=== PATIENT | female | born 1990 | race Caucasian/White ===

== ENCOUNTER 2016-10-05 19:58 | Emergency (ER) | payer OTHER ==
[~2016-10-05] VITALS: Ht 182.9 cm; Wt 0.6 kg
[~2016-10-05 19:58] MED LIST: OMEP20TA86 PO; POLY17PO6 PO; PREN1TAB25 PO; PROM25TA14 PO
[2016-10-05 20:09] VITALS: BP 121/81; PULSE 120; RESP 16; O2SAT 100
[2016-10-05 20:51] LABS: BASOPHILS % (AUTO) 0.1 % (0-3); EOSINOPHILS % (AUTO) 0.6 % (0-5); MONOCYTES % (AUTO) 5.4 % (4-12); Mean Corpuscular Hemoglobin 30.4 pg (27.0-35.0); Mean Corpuscular Volume 88.6 fL (81-100); NEUTROPHILS % (AUTO) 74.7 % (40-74); Platelet Count 190 bil/L (150-400)
[2016-10-05 21:30] LABS: APPEARANCE,URINE CLEAR (CLEAR,HAZY); COLOR,URINE STRAW (YELLOW); OCCULT BLOOD,URINE NEGATIVE (NEGATIVE); UROBILINOGEN,URINE NORMAL (NORMAL)
[2016-10-05 21:38] LABS: Magnesium 1.7 mg/dL (1.6-2.6)
--- NOTE | 2016-10-05 21:47 | ED.REPORT ---
HPI-Abd Pain F Under 40 Date of Service Oct 05, 2016 ED Provider: Roderick Rodriguez MD The patient is a 26 year old, 14 wk female who presents to the ED complaining of RLQ abdominal pain since waking this morning. Associated symptom of diarrhea. She denies dysuria, cough, vomiting, hematochezia, fever, or any other symptoms at this time. Nursing Notes Stated Complaint: ABD PAIN/14 WKS PREG Chief Complaint: Female Abdominal Pain Nursing Notes Reviewed: Yes Allergies: Coded Allergies: ondansetron (Verified Allergy, Unknown, Rash, 06/19/16) States she can't have zofran ODT - NO ALLERGIC RESPONSE WITH IV Uncoded Allergies: BUBBLE GUM FLAVOR (Allergy, Severe, Anaphylaxis, 11/07/15) Scheduled Cephalexin (Keflex) 500 Mg Capsule 500 MG PO QID Omeprazole (Omeprazole) 20 Mg Tablet.dr 20 MG PO BID Vit#96/Ferrous Fum/FA ( Tablet) 1 Each Tablet 1 EACH PO DAILY Scheduled PRN Polyethylene Glycol 3350 (Miralax) 17 Gm Powd.pack 17 GM PO DAILY PRN PRN CONSTIPATION Promethazine (Promethazine) 25 Mg Tablet 25-50 MG PO Q6H PRN PRN For Nausea General Time Seen by MD: 21:47 Chief Complaint Abdominal pain, # weeks (14) Hx Obtained From: Patient Arrived By: Walk-in Sudden in Onset?: No Onset Occurred: 13 - 16 hours ago Symptom Duration: Since onset Progression since Onset: Unchanged Location: : RLQ Quality: Painful Severity: Current: Mild Severity: Maximum: Moderate Recent Healthcare: No recent doctor visit, No recent hospitalization Similar Sx Previous: No Past Medical History Past Medical History Pancreatitis UTIs limited OB care with previous pregnancies Reports: Urinary tract infection Past Surgical History Denies Family History PCO (sister) Smoking History Current Every Day Smoker Social History Alcohol Use: Denies alcohol use Drug Use: THC Other Social History: Poor social support, Lives with children, Local resident Ambulatory Status Independent Review of Systems Constitutional: Denies: Chills, Fever GI: Reports: Abdominal pain, Diarrhea, Denies: Bloody/tarry stool, Constipation, Hematochezia, Vomiting Complete sys rev & neg: except as marked. Physical Exam Initial Vital Signs Vital Signs (First) Date Time Temp Pulse Resp B/P Pulse Ox O2 Delivery O2 Flow Rate FiO2 10/05/16 20:09 36.3 120 16 121/81 100 Room Air Initial VS: Reviewed Head / Eyes: Atraumatic, Normocephalic, PERRL ENT: Mucous membranes moist, Conjunctiva normal, No scleral icterus Neck: Supple, Non-tender, Full range of motion Extremities: Vascular intact, Neuro intact, No swelling, No tenderness Skin: Warm, Dry, No cyanosis Neurologic: Alert, Oriented, Nonfocal Psychiatric: Mood/affect normal, Behavior normal, Normal thought content General/Constitutional: Awake, Alert, No acute distress, Well appearing Respiratory / Chest: Atraumatic, Breath sounds NL, Breath sounds = bilat, No respiratory distress Cardiovascular: Heart rate NL, Regular rhythm, Heart sounds NL Abdomen: Atraumatic, Soft Tenderness/Guarding/Rebound: Positive: Tender RLQ... (Mild) Back: Atraumatic, Inspection NL, Full range of motion, Non-tender Interpretation & Diagnostics Lab Results Interpretation Result Diagram: 10/05/16203610/05/162036 Test 10/05/16 20:37 10/05/16 21:01 White Blood Count 8.2th/mm3 (3.8-10.1) Red Blood Count 3.78mil/mm3 (3.90-5.20) Hemoglobin 11.5g/dL (12.0-15.6) Hematocrit 33.5% (35.0-46.0) Mean Corpuscular Volume 88.6fL (81-100) Mean Corpuscular Hemoglobin 30.4pg (27.0-35.0) Mean Corpuscular Hemoglobin Concent 34.3% (32.0-37.0) Red Cell Distribution Width 13.3% (12.3-15.4) Platelet Count 190bil/L (150-400) Neutrophils (%) (Auto) 74.7% (40-74) Lymphocytes (%) (Auto) 19.1% (14-46) Monocytes (%) (Auto) 5.4% (4-12) Eosinophils (%) (Auto) 0.6% (0-5) Basophils (%) (Auto) 0.1% (0-3) Sodium Level 137mEq/L (134-144) Potassium Level 3.6mEq/L (3.5-5.2) Chloride Level 102mEq/L (97-108) Carbon Dioxide Level 22mmol/L (18-29) Blood Urea Nitrogen 5mg/dL (6-20) Creatinine 0.39mg/dL (0.57-1.00) Estimat Glomerular Filtration Rate 289mL/min (>59) Glucose Level 92mg/dL (60-99) Calcium Level 9.0mg/dL (8.5-10.1) Magnesium Level 1.7mg/dL (1.6-2.6) Total Bilirubin 0.2mg/dL (0.0-1.2) Aspartate Amino Transf (AST/SGOT) 16U/L (0-50) Alanine Aminotransferase (ALT/SGPT) 9U/L (0-32) Alkaline Phosphatase 52U/L (25-150) Total Protein 6.9g/dL (6.4-8.4) Albumin 3.9g/dL (3.4-5.0) Lipase 18U/L (13-60) HCG Beta Subunit [id number]/mL Hold Javier Top Tube Received (Received) Urine Color Straw (YELLOW) Urine Appearance Clear (CLEAR,HAZY) Urine pH 7.0 (5.0-8.0) Urine Specific [place] 1.010 (1.003-1.035) Urine Protein Negativemg/dL (NEG,TRACE) Urine Glucose (UA) Negativemg/dL (NEGATIVE) Urine Ketones Negativemg/dL (NEGATIVE) Urine Occult Blood Negative (NEGATIVE) Urine Nitrite Negative (NEGATIVE) Urine Bilirubin Negative (NEGATIVE) Urine Urobilinogen Normalmg/dL (NORMAL) Urine Leukocyte Esterase Large (NEGATIVE) Urine RBC 0-2/hpf (0-2) Urine WBC 11-50/hpf (0-5) Urine Epithelial Cells Many/hpf (NONE-MOD) Urine Crystals None seen (NONE SEEN) Urine Bacteria Moderate/hpf (NONE-FEW) Urine Hyaline Casts None/lpf (NONE) Urine Granular Casts None seen (NONE SEEN) Urine Waxy Casts None seen (NONE SEEN) Urine Red Blood Cell Casts None seen (NONE SEEN) Urine White Blood Cell Casts None seen (NONE SEEN) Urine Mucus None seen (None Seen) Urine Trichomonas None seen (NONE SEEN) Urine Yeast None (NONE SEEN) Urinalysis Comment None Urine Culture Reflexed Indicated Re-Eval/Medical Decision Med Decision/Clinical Course Med Decision/Clinical Course: 25-year-old female fourteen weeks with abdominal pain most primarily in the right mid abdomen. Was not actually particularly tender in the right lower quadrant. She has a definite UTI by urine. We will treat that empirically and follow clinically. Plan return tomorrow if pain is progressive or not resolving. Begun with Rocephin IV tonight and Keflex to follow. Tylenol or Motrin as needed for pain. Source of Hx: Old records Re-Evaluation/Progress : Time of Eval: 22:52 Re-Evaluation/Progress Note: Rechecked the patient who reports some relief but continued pain. Discussed plan for treatment. Discussed diagnosis and plan for discharge. Follow-up instructions and RTER warnings given. The patient understands and agrees to the plan. All questions addressed. Counseled Regarding: Diagnosis, Lab results, Need for follow-up, When/why to return to ED Discharge & Departure Primary Impression: UTI (urinary tract infection) Urinary tract infection type: acute cystitis Hematuria presence: without hematuria Qualified Code: N30.00 - Acute cystitis without hematuria Additional Impressions: Abdominal pain Abdominal location: right lower quadrant Qualified Code: R10.31 - Right lower quadrant pain Weeks of gestation: 14 weeks Qualified Code: Z3A.14 - 14 weeks gestation of Disposition: Home Discharge Condition All VS Reviewed: Yes Condition: Stable Patient Instructions: Acute Abdominal Pain (ED), Appendicitis (ED), Urinary Tract Infection in Women (ED) Additional Instructions: We have no evidence of appendicitis at this time. However, if your pain is worsening overnight, return in the morning for recheck, and we may have to go through further evaluation to exclude that possibility. At this point, her white count is normal, your exam is tender but not surgical, and you have a definite urinary tract infection. Begin Keflex four times daily. Ibuprofen four times daily if needed. This is safe in until twenty- four weeks. Stay well-hydrated drink plenty of fluids Do not eat in the morning if you are going to return here. Referrals: MIKI DORANTES MD (PCP) Elías Attestation Portions of this note were transcribed by Anibal Saini. I, Dr. Rodriguez, personally performed the history, physical exam, and medical decision-making; I reviewed and confirmed the accuracy of the information in the transcribed note. Signed by: Elías Mendez 10/05/16 23:23. copies to: MIKI DORANTES MD, Christopher W MD Oct 05, 2016 21:47 ANIBAL SAINI Oct 05, 2016 21:59
[2016-10-05] MEDS ORDERED: 0.9% Sodium Chloride 1,000 ML IV ONE (21:58)
[2016-10-05] MEDS ORDERED: cefTRIAXone Inj 2,000 MG in IV Premix 1 EACH IV ONE (22:00)
[2016-10-05] MEDS ORDERED: Acetaminophen IV 1,000 MG in IV Premix 1 EACH IV ONE (22:00)
[2016-10-05 22:17] VITALS: BP 116/68; PULSE 114; RESP 16; O2SAT 100
[2016-10-05] MEDS ORDERED: CEPH-512 PO (23:19)
[2016-10-05 23:27] VITALS: BP 112/63; PULSE 73; RESP 16; O2SAT 99
[2016-10-06] MEDS ORDERED: METO10TA3 PO (09:23)
== END 2016-10-05 23:28 | disposition home or self-care (01) ==
LOC: SED 19:58
DX: O23.12 Infections of bladder in pregnancy, second trimester (principal); O26.892 Other specified pregnancy related conditions, second trimester; R19.7 Diarrhea, unspecified; F17.200 Nicotine dependence, unspecified, uncomplicated; Z3A.14 14 weeks gestation of pregnancy; Z88.8 Allergy status to other drugs, medicaments and biological substances
CPT/HCPCS: 36415; 80053; 81000; 83690; 83735; 84702; 85025; 87086; 96365; 96375; 99285; J0131; J0696; J7030

== ENCOUNTER 2016-10-06 05:25 | Emergency (ER) | payer OTHER ==
[~2016-10-06] VITALS: Ht 182.9 cm; Wt 55.5 kg
[~2016-10-06 05:25] MED LIST changes: +CEPH-512 PO
[2016-10-06] MEDS ORDERED: 0.9% Sodium Chloride 1,000 ML IV ONE (05:27)
[2016-10-06 05:29] VITALS: BP 118/76; PULSE 94; RESP 18; O2SAT 100
[2016-10-06] MEDS ORDERED: HYDROmorphone 0.5 mg/0.5 mL iSecure Syringe IVPUSH PRN (05:30)
[2016-10-06 05:58] LABS: BASOPHILS % (AUTO) 0.3 % (0-3); MONOCYTES % (AUTO) 6.8 % (4-12); Mean Corpuscular Hemoglobin 30.8 pg (27.0-35.0); Mean Corpuscular Volume 88.7 fL (81-100); NEUTROPHILS % (AUTO) 63.9 % (40-74); Platelet Count 175 bil/L (150-400)
[2016-10-06] MEDS ORDERED: Ondansetron 2 mg/mL 2 mL Inj IVPUSH PRN (06:30)
[2016-10-06] MEDS ORDERED: MetoCLOpramide 5 mg/mL 2 mL Inj IVPUSH ONE (06:30)
[2016-10-06] MEDS ORDERED: Acetaminophen IV 1,000 MG in IV Premix 1 EACH IV ONE (06:30)
[2016-10-06 06:55] LABS: Magnesium 1.9 mg/dL (1.6-2.6)
--- NOTE | 2016-10-06 09:21 | ED.REPORT ---
HPI-Abd Pain F Under 40 Date of Service Oct 06, 2016 ED Provider: Jarocho Vasquez MD This young woman presents with abdominal pain. She is 14 weeks and presented with the identical complaint last night. She was initially seen by Dr. Rodriguez at the time of arrival and I assumed care upon his departure. When I interviewed the patient she says that her symptoms are completely resolved with the medications administered. I examined her carefully as well. She denies any other health problems and denies any previous surgeries Nursing Notes Stated Complaint: ABDOMINAL PAIN Chief Complaint: Female Abdominal Pain Nursing Notes Reviewed: Yes Allergies: Coded Allergies: ondansetron (Verified Allergy, Unknown, Rash, 06/19/16) States she can't have zofran ODT - NO ALLERGIC RESPONSE WITH IV Uncoded Allergies: BUBBLE GUM FLAVOR (Allergy, Severe, Anaphylaxis, 11/07/15) Scheduled Cephalexin (Keflex) 500 Mg Capsule 500 MG PO QID Omeprazole (Omeprazole) 20 Mg Tablet.dr 20 MG PO BID Vit#96/Ferrous Fum/FA ( Tablet) 1 Each Tablet 1 EACH PO DAILY Scheduled PRN Metoclopramide (Metoclopramide) 10 Mg Tablet 10 MG PO QID PRN PRN For Nausea Polyethylene Glycol 3350 (Miralax) 17 Gm Powd.pack 17 GM PO DAILY PRN PRN CONSTIPATION Promethazine (Promethazine) 25 Mg Tablet 25-50 MG PO Q6H PRN PRN For Nausea General Time Seen by MD: 05:38 Chief Complaint Abdominal pain Hx Obtained From: Patient Arrived By: Walk-in Sudden in Onset?: Yes Onset Occurred: 3 days ago Symptom Duration: Since onset Location: : Diffuse Severity: Current: Mild Severity: Maximum: Moderate Similar Sx Previous: Yes Past Medical History Past Medical History Pancreatitis UTIs limited OB care with previous pregnancies Reports: Urinary tract infection Past Surgical History Denies Family History PCO (sister) Smoking History Current Every Day Smoker Social History Alcohol Use: Denies alcohol use Drug Use: THC Other Social History: Poor social support, Lives with children, Local resident Ambulatory Status Independent Review of Systems Constitutional: Denies: Chills, Fever, Malaise, Weakness - generalized Respiratory: Denies: Non-productive cough, Shortness of breath, Wheezing Cardiovascular: Denies: Chest pain, Syncope GI: Reports: Abdominal pain, Denies: Constipation, Diarrhea, Nausea, Vomiting Female: Denies: Dysuria, Flank pain, Urinary frequency, Urinary urgency Musculoskeletal: Denies: Back pain, Extremity pain, Neck pain Complete sys rev & neg: except as marked. Physical Exam Initial Vital Signs Vital Signs (First) Date Time Temp Pulse Resp B/P Pulse Ox O2 Delivery O2 Flow Rate FiO2 10/06/16 05:29 36.9 94 18 118/76 100 Room Air Initial VS: Reviewed Head / Eyes: Atraumatic, Normocephalic, PERRL ENT: Mucous membranes moist, Conjunctiva normal, No scleral icterus Neck: Supple, Non-tender, Full range of motion Skin: Warm, Dry, No cyanosis Neurologic: Alert, Oriented, Nonfocal Psychiatric: Mood/affect normal, Behavior normal, Normal thought content General/Constitutional: Awake, Alert, No acute distress, Well appearing, Well developed, Well nourished, Cooperative Respiratory / Chest: Atraumatic, Breath sounds NL, Breath sounds = bilat, No respiratory distress Cardiovascular: Heart rate NL, Regular rhythm, Heart sounds NL, No gallop, No murmurs, No rubs Abdomen: Atraumatic, Soft, Non-tender, No guarding, No rebound , soft uterus Physical exam was conducted after pain medications were given Back: Atraumatic, Inspection NL, No midline vertebral tend, No CVA tenderness Interpretation & Diagnostics Lab Results Interpretation Result Diagram: 10/06/16 0545 10/06/16 0545 Test 10/06/16 05:45 White Blood Count 5.7th/mm3 (3.8-10.1) Red Blood Count 4.16mil/mm3 (3.90-5.20) Hemoglobin 12.8g/dL (12.0-15.6) Hematocrit 36.9% (35.0-46.0) Mean Corpuscular Volume 88.7fL (81-100) Mean Corpuscular Hemoglobin 30.8pg (27.0-35.0) Mean Corpuscular Hemoglobin Concent 34.7% (32.0-37.0) Red Cell Distribution Width 13.5% (12.3-15.4) Platelet Count 175bil/L (150-400) Neutrophils (%) (Auto) 63.9% (40-74) Lymphocytes (%) (Auto) 28.0% (14-46) Monocytes (%) (Auto) 6.8% (4-12) Eosinophils (%) (Auto) 1.0% (0-5) Basophils (%) (Auto) 0.3% (0-3) Sodium Level 135mEq/L (134-144) Potassium Level 3.6mEq/L (3.5-5.2) Chloride Level 100mEq/L (97-108) Carbon Dioxide Level 23mmol/L (18-29) Blood Urea Nitrogen 4mg/dL (6-20) Creatinine 0.40mg/dL (0.57-1.00) Estimat Glomerular Filtration Rate 281mL/min (>59) Glucose Level 96mg/dL (60-99) Calcium Level 8.9mg/dL (8.5-10.1) Magnesium Level 1.9mg/dL (1.6-2.6) Total Bilirubin 0.3mg/dL (0.0-1.2) Aspartate Amino Transf (AST/SGOT) 15U/L (0-50) Alanine Aminotransferase (ALT/SGPT) 8U/L (0-32) Alkaline Phosphatase 52U/L (25-150) Total Protein 7.1g/dL (6.4-8.4) Albumin 4.0g/dL (3.4-5.0) Lipase 15U/L (13-60) Hold Javier Top Tube Received (Received) Lab Results Interpretation: central supply technician reports normal appendix is identified. Re-Eval/Medical Decision Source of Hx: Old records Re-Evaluation/Progress : Time of Eval: 09:24 Re-Evaluation/Progress Note: Pt is rechecked and informed of her US results and the plan to discharge her at this time. She understands and agrees, all questions are addressed. Counseled Regarding: Diagnosis, Lab results, When/why to return to ED Discharge & Departure Primary Impression: Abdominal pain Abdominal location: right lower quadrant Qualified Code: R10.31 - Right lower quadrant pain Additional Impression: Weeks of gestation: 14 weeks Qualified Code: Z3A.14 - 14 weeks gestation of Disposition: Home Discharge Condition All VS Reviewed: Yes Condition: Stable Patient Instructions: Acute Abdominal Pain (ED) Additional Instructions: Your appendix appears normal on the ultrasound. Your blood work is entirely normal. Continue the antibiotic as prescribed. Follow-up with your OB doctor on Saturday. Return to the emergency department if you develop a high fever or feeling much worse. Use Tylenol 1000 mg every 6 hours and/or ibuprofen 800 mg every 8 hours Referrals: MIKI DORANTES MD (PCP) Scribe Attestation Portions of this note were transcribed by Emily Gutierrez. I, Dr. Vasquez personally performed the history, physical exam and medical decision-making; I reviewed and confirmed the accuracy of the information in the transcribed note. Signed by: Emily Mckinely, 10/06/2016 09:23 copies to: MIKI DORANTES MD, Kirk H MD Oct 06, 2016 09:21 HEIKE GUTIERREZ Oct 06, 2016 09:25
[2016-10-06] MEDS ORDERED: METO10TA3 PO (09:23)
[2016-10-06 09:49] VITALS: BP 100/61; PULSE 80; RESP 16; O2SAT 99
--- NOTE | 2016-10-06 10:29 | DRSVH ---
PROCEDURE: US APPENDIX INDICATIONS: rlq pain, r/o appy TECHNIQUE: Real-time focused scanning was performed of the abdomen with attention to the appendix, with image do cumentation. COMPARISON: [facility], , OB [facility]OB TRAN[facility], 02/17/2016, 22:35. FINDINGS: There is a tubular compressible structure in the right lower quadrant demonstrating bowel signature w hich appears blind-ending and likely represents the appendix. This is normal in size measuring up to approximately 5 mm in diameter. No free fluid identified in the right lower quadrant. Patient was reportedly nontender on exam. Right ovary not visualized. There is an intrauterine demonstrated with heart rate of 147 beats per minute. IMPRESSION: 1. Tubular structure likely representing a normal appendix demonstrated in the right lower quadrant. No free fluid or tenderness reported during examination. 2. Single living intrauterine demonstrated. Dictated by: Bishop Ca M.D. on 10/06/2016 at 10:25 Approved by: Bishop Ca M.D. on 10/06/2016 at 10:25
== END 2016-10-06 09:51 | disposition home or self-care (01) ==
LOC: SED 05:25
DX: O99.89 Other specified diseases and conditions complicating pregnancy, childbirth and the puerperium (principal); R10.31 Right lower quadrant pain; Z3A.14 14 weeks gestation of pregnancy; O99.332 Smoking (tobacco) complicating pregnancy, second trimester; Z88.8 Allergy status to other drugs, medicaments and biological substances
CPT/HCPCS: 36415; 76705; 80053; 83690; 83735; 85025; 96361; 96374; 96375; 99285; J0131; J1170; J2405; J2765; J7030

== ENCOUNTER 2016-10-06 19:04 | Emergency (ER) | payer OTHER ==
[~2016-10-06] VITALS: Ht 182.9 cm; Wt 55.5 kg
[~2016-10-06 19:04] MED LIST changes: +METO10TA3 PO
[2016-10-06 19:12] VITALS: BP 124/63; PULSE 94; RESP 18; O2SAT 99
[2016-10-06 19:59] LABS: BASOPHILS % (AUTO) 0.1 % (0-3); EOSINOPHILS % (AUTO) 0.7 % (0-5); MONOCYTES % (AUTO) 5.6 % (4-12); Mean Corpuscular Hemoglobin 29.9 pg (27.0-35.0); Mean Corpuscular Volume 89.6 fL (81-100); NEUTROPHILS % (AUTO) 76.8 % (40-74); Platelet Count 182 bil/L (150-400)
[2016-10-06 20:18] LABS: Magnesium 1.9 mg/dL (1.6-2.6)
[2016-10-06 20:29] LABS: APPEARANCE,URINE HAZY (CLEAR,HAZY); COLOR,URINE YELLOW (YELLOW); OCCULT BLOOD,URINE NEGATIVE (NEGATIVE); UROBILINOGEN,URINE NORMAL (NORMAL)
--- NOTE | 2016-10-06 20:36 | ED.REPORT ---
HPI-Abd Pain F Under 40 Date of Service Oct 06, 2016 ED Provider: Dr. Hank Parrish D.O. A 26 year old female at 14 weeks with a history of pancreatitis and heart murmur presents to the ED with right-sided abdominal pain onset last night. The patient also reports vomiting with hematemesis (x3). She denies vaginal bleeding. This is the patient's third visit to the ED since onset of her symptoms. The patient is currently being treated for a UTI. Nursing Notes Stated Complaint: STOMACH PAIN,ThROWING UP BLOOD Chief Complaint: Female Abdominal Pain Nursing Notes Reviewed: Yes Allergies: Coded Allergies: ondansetron (Verified Allergy, Unknown, Rash, 10/06/16) States she can't have zofran ODT - NO ALLERGIC RESPONSE WITH IV Uncoded Allergies: BUBBLE GUM FLAVOR (Allergy, Severe, Anaphylaxis, 11/07/15) Scheduled Cephalexin (Keflex) 500 Mg Capsule 500 MG PO QID Omeprazole (Omeprazole) 20 Mg Tablet.dr 20 MG PO BID Vit#96/Ferrous Fum/FA ( Tablet) 1 Each Tablet 1 EACH PO DAILY Scheduled PRN Metoclopramide (Metoclopramide) 10 Mg Tablet 10 MG PO QID PRN PRN For Nausea Polyethylene Glycol 3350 (Miralax) 17 Gm Powd.pack 17 GM PO DAILY PRN PRN CONSTIPATION Promethazine (Promethazine) 25 Mg Tablet 25-50 MG PO Q6H PRN PRN For Nausea General Time Seen by MD: 20:36 Chief Complaint Abdominal pain Hx Obtained From: Patient Arrived By: Walk-in Sudden in Onset?: Yes Onset Occurred: Yesterday Symptom Duration: Since onset Location: : RLQ: RUQ Quality: Painful Severity: Current: Moderate Severity: Maximum: Moderate Associated with: Reports: Hematemesis, Vomiting, Denies: Fever Status: Positive - ED urine HCG Pertinent Negative: Relieved by nothing Context Related History: Reports: Current , Pancreatitis, Urinary tract infection Recent Healthcare: Recent doctor visit Similar Sx Previous: Yes Past Medical History Past Medical History Pancreatitis UTIs limited OB care with previous pregnancies Heart murmur Reports: Urinary tract infection Past Surgical History Denies Family History PCO (sister) Smoking History Current Every Day Smoker Social History Alcohol Use: Denies alcohol use Drug Use: THC Other Social History: Poor social support, Lives with children, Local resident Ambulatory Status Independent Review of Systems Constitutional: Denies: Fever GI: Reports: Abdominal pain (Right-sided), Hematemesis, Vomiting Female: Denies: Vaginal bleeding - abnl Complete sys rev & neg: except as marked. Physical Exam Initial Vital Signs Vital Signs (First) Date Time Temp Pulse Resp B/P Pulse Ox O2 Delivery O2 Flow Rate FiO2 10/06/16 19:12 36.3 94 18 124/63 99 Room Air Initial VS: Reviewed Head / Eyes: Atraumatic, Normocephalic ENT: Conjunctiva normal, No scleral icterus Neck: Supple, Full range of motion Skin: Warm, Dry, No cyanosis Neurologic: Alert, Oriented, Nonfocal Psychiatric: Mood/affect normal, Behavior normal, Normal thought content General/Constitutional: Awake, Alert Respiratory / Chest: Breath sounds NL, Breath sounds = bilat, No respiratory distress Cardiovascular: Heart rate NL, Regular rhythm, Heart sounds NL Abdomen: Soft Tenderness/Guarding/Rebound: Positive: Tender RUQ... (Mild) Interpretation & Diagnostics Bedside US performed by ED physician indicates normal gallbladder, normal intrauterine with heart tones of 158 and good movement, normal amount of amniotic fluid, no sonographic Theodore's sign Lab Results Interpretation Result Diagram: 10/06/16 2251 10/06/16 1946 Test 10/06/16 19:20 10/06/16 19:46 10/06/16 22:51 Urine Color Yellow (YELLOW) Urine Appearance Hazy (CLEAR,HAZY) Urine pH 7.0 (5.0-8.0) Urine Specific [place] 1.020 (1.003-1.035) Urine Protein Negativemg/dL (NEG,TRACE) Urine Glucose (UA) Negativemg/dL (NEGATIVE) Urine Ketones Negativemg/dL (NEGATIVE) Urine Occult Blood Negative (NEGATIVE) Urine Nitrite Negative (NEGATIVE) Urine Bilirubin Negative (NEGATIVE) Urine Urobilinogen Normalmg/dL (NORMAL) Urine Leukocyte Esterase Small (NEGATIVE) Urine RBC 0-2/hpf (0-2) Urine WBC 6-10/hpf (0-5) Urine Epithelial Cells Moderate/hpf (NONE-MOD) Urine Crystals None seen (NONE SEEN) Urine Bacteria Few/hpf (NONE-FEW) Urine Hyaline Casts None/lpf (NONE) Urine Granular Casts None seen (NONE SEEN) Urine Waxy Casts None seen (NONE SEEN) Urine Red Blood Cell Casts None seen (NONE SEEN) Urine White Blood Cell Casts None seen (NONE SEEN) Urine Mucus Present (None Seen) Urine Trichomonas None seen (NONE SEEN) Urine Yeast Moderate (NONE SEEN) Urinalysis Comment None Urine Culture Reflexed Indicated White Blood Count 7.1th/mm3 (3.8-10.1) Red Blood Count 3.64mil/mm3 (3.90-5.20) Mean Corpuscular Volume 89.6fL (81-100) Mean Corpuscular Hemoglobin 29.9pg (27.0-35.0) Mean Corpuscular Hemoglobin Concent 33.4% (32.0-37.0) Red Cell Distribution Width 13.6% (12.3-15.4) Platelet Count 182bil/L (150-400) Neutrophils (%) (Auto) 76.8% (40-74) Lymphocytes (%) (Auto) 16.7% (14-46) Monocytes (%) (Auto) 5.6% (4-12) Eosinophils (%) (Auto) 0.7% (0-5) Basophils (%) (Auto) 0.1% (0-3) Sodium Level 135mEq/L (134-144) Potassium Level 4.0mEq/L (3.5-5.2) Chloride Level 101mEq/L (97-108) Carbon Dioxide Level 22mmol/L (18-29) Blood Urea Nitrogen 8mg/dL (6-20) Creatinine 0.42mg/dL (0.57-1.00) Estimat Glomerular Filtration Rate 266mL/min (>59) Glucose Level 95mg/dL (60-99) Calcium Level 8.8mg/dL (8.5-10.1) Magnesium Level 1.9mg/dL (1.6-2.6) Total Bilirubin 0.2mg/dL (0.0-1.2) Aspartate Amino Transf (AST/SGOT) 13U/L (0-50) Alanine Aminotransferase (ALT/SGPT) 7U/L (0-32) Alkaline Phosphatase 48U/L (25-150) Total Protein 6.5g/dL (6.4-8.4) Albumin 3.7g/dL (3.4-5.0) Lipase 18U/L (13-60) Hold Javier Top Tube Received (Received) Hemoglobin 10.7g/dL (12.0-15.6) Hematocrit 31.3% (35.0-46.0) Re-Eval/Medical Decision Med Decision/Clinical Course On my evaluation this young lady was completely asymptomatic. The pain had resolved. She had a little residual nausea but no further vomiting. We perform serial H&H's and they were stable. She does have very mild anemia. She is not having any evidence of acute active gastrointestinal hemorrhage. I consulted with the on-call OB for her group. They would like us to place her on Reglan and they will check with her tomorrow. At discharge she was completely asymptomatic. She had no pain. She had no tenderness and no further vomiting. Source of Hx: Old records Re-Evaluation/Progress #1: Time of Eval: 21:50 Patient Status: Condition improved Re-Evaluation/Progress Note: Bedside US performed. Re-Evaluation/Progress #2: Time of Eval: 22:19 Patient Status: Condition improved Re-Evaluation/Progress Note: Discussed with patient lab results, diagnosis, and plan for discharge. Follow-up and return to the ER instructions given. Patient agrees with plan for care and all questions were addressed. Consultation : Referral / Consult Name: Melva Ceballos MD Call Returned at: 22:12 Typing Section Chief: Agrees with eval, Agrees with plan Note: SYSTEM ADMIN avionics systems technician for Dr. Rick: Agrees with plan for Reglan Counseled Regarding: Diagnosis, Lab results, Need for follow-up, When/why to return to ED Discharge & Departure Shift Change Sign-Out Response to Therapy: Improved Primary Impression: Abdominal pain Abdominal location: right upper quadrant Qualified Code: R10.11 - Right upper quadrant pain Additional Impression: Nausea/vomiting in Disposition: Home Discharge Condition All VS Reviewed: Yes Condition: Stable Patient Instructions: Acute Abdominal Pain (ED), Gastrointestinal Bleeding (ED) , Hyperemesis Gravidarum (GEN) Additional Instructions: The gallbladder ultrasound and her ultrasound were both reassuring. You are mildly anemic. Take Reglan one every 6 hours as needed for nausea. Drink plenty of liquids. Keep your follow-up on Saturday with Dr. Rick. I consulted with Dr. Ceballos who is on-call for Dr. Rick. She agrees with the plan for the Reglan. If you vomit up any more blood then you need to come right back to the emergency department. The cause of your pain is uncertain. This too needs close follow-up. Discuss all of this with Dr. Rick. Referrals: MIKI DORANTES MD (PCP) Anibal Rick MD [employer] Attestation Portions of this note were transcribed by Nancy Nina. I, Dr. Parrish, personally performed the history, physical exam, and medical decision-making; I reviewed and confirmed the accuracy of the information in the transcribed note. Signed by: Elías Corado, 10/06/2016, 23:33 copies to: MIKI DORANTES MD; Anibal Rick MD, Todd P DO Oct 06, 2016 20:36 NANCY NINA Oct 06, 2016 21:18
[2016-10-06 20:37] LABS: YEAST,URINE MODERATE (NONE SEEN)
[2016-10-06 23:23] VITALS: BP 104/52; PULSE 72; RESP 18; O2SAT 99
== END 2016-10-06 23:24 | disposition home or self-care (01) ==
LOC: SED 19:05
DX: O26.892 Other specified pregnancy related conditions, second trimester (principal); R10.11 Right upper quadrant pain; O21.0 Mild hyperemesis gravidarum; O99.612 Diseases of the digestive system complicating pregnancy, second trimester; K92.0 Hematemesis; F17.200 Nicotine dependence, unspecified, uncomplicated; Z88.8 Allergy status to other drugs, medicaments and biological substances; Z3A.14 14 weeks gestation of pregnancy

== ENCOUNTER 2017-04-03 09:05 | Emergency (ER) | payer OTHER ==
[~2017-04-03] VITALS: Ht 182.9 cm; Wt 56.0 kg
[2017-04-03 09:09] VITALS: BP 106/71; PULSE 116; RESP 18; O2SAT 99
[2017-04-03] MEDS ORDERED: 0.9% Sodium Chloride 1,000 ML IV ONE (09:45)
--- NOTE | 2017-04-03 09:49 | ED.REPORT ---
HPI-Abd Pain F Under 40 Date of Service Apr 03, 2017 ED Provider: Tai Cuellar MD The patient is a 27 year old female with history of prior tubal ligation on February 26, who presents to the emergency department complaining of a fever. She was evaluated at urgent care on Saturday for 1 week of abdominal pain, had and ultrasound and was told there was fluid around her uterus. The pain was diffusely throughout her abdomen. She was seen at [facility] last night for the same, had a CT scan with no acute findings, and the cause of her pain was undetermined. She got home last night, was still having pain, took Tylenol and Ibuprofen, and went to bed. This morning she woke up with a fever, nausea, and vomiting. She has not had a fever prior to today. The abdominal pain is currently resolved. She denies cough, dysuria, lower extremity swelling. Nursing Notes Stated Complaint: FEVER Chief Complaint: General Complaint Nursing Notes Reviewed: Yes ([employer], meds not reconciled) Allergies: Coded Allergies: ondansetron (Verified Allergy, Unknown, Rash, 10/06/16) States she can't have zofran ODT - NO ALLERGIC RESPONSE WITH IV Uncoded Allergies: BUBBLE GUM FLAVOR (Allergy, Severe, Anaphylaxis, 11/07/15) No Active Prescriptions or Reported Meds General Time Seen by MD: 09:32 Chief Complaint Other (fever) Hx Obtained From: Patient Arrived By: Walk-in Sudden in Onset?: Yes Onset Occurred: 5 - 8 hours ago Symptom Duration: Since onset Progression since Onset: Constant Location: : Diffuse Quality: Painful Severity: Current: No pain currently Severity: Maximum: Severe Recent Healthcare: No recent hospitalization, Recent doctor visit, Previous surgery (tubal ligation), Prior workup Similar Sx Previous: No Past Medical History Past Medical History Notes: Patient is 5 weeks post Seen at [facility] department for abdominal pain yesterday, April 02 Seen Urgent care March 29 for abdominal pain w/pelvic US raising question of pelvic congestion syndrome Past Medical History h/o Pancreatitis UTIs limited OB care with previous pregnancies Heart murmur History of bipolar History of chlamydia, HPV History of abnormal Pap smear History of anemia Reports: Urinary tract infection Past Surgical History Tubal ligation February 2017 Family History PCO (sister) Smoking History Current Every Day Smoker Social History Alcohol Use: Denies alcohol use Drug Use: THC Other Social History: Poor social support, Lives with children, Local resident Ambulatory Status Independent Review of Systems Constitutional: Reports: Fever Respiratory: Denies: Non-productive cough GI: Reports: Abdominal pain, Nausea, Vomiting Female: Denies: Dysuria Musculoskeletal: Denies: Extremity swelling Complete sys rev & neg: except as marked. Physical Exam Initial Vital Signs Vital Signs (First) Date Time Temp Pulse Resp B/P Pulse Ox O2 Delivery O2 Flow Rate FiO2 04/03/17 09:09 37.6 116 18 106/71 99 Room Air Initial VS: Reviewed Head / Eyes: Atraumatic, Normocephalic, PERRL ENT: Mucous membranes moist, Conjunctiva normal, No scleral icterus Neck: Supple, Non-tender, Full range of motion Lymphatic: No lymphadenopathy Extremities: Vascular intact, Neuro intact, No swelling, No tenderness Skin: Warm, Dry, No cyanosis Neurologic: Alert, Oriented, Nonfocal Psychiatric: Mood/affect normal, Behavior normal, Normal thought content General/Constitutional: Awake, Alert, No acute distress, Well appearing Respiratory / Chest: Atraumatic, Breath sounds NL, Breath sounds = bilat, No respiratory distress, No rales, No rhonchi, No wheezing Cardiovascular: Regular rhythm, Heart sounds NL, No gallop, No murmurs, No rubs , Cap refill not delayed, Peripheral circulation NL Heart Rate / Rhythm: Positive: Tachycardia Abdomen: Atraumatic, Soft, Non-tender, McBurney's non-tender, No guarding, No rebound, BS normoactive, No distention, No hernia, No palpable mass Back: Inspection NL, Non-tender, No CVA tenderness Interpretation & Diagnostics Interpretation & Diagnostics: CT abdomen and pelvis at [facility] and normal appearance, CBC, CMP were normal and [facility]GH yesterday PELVIC US IMPRESSION: 1. Normal appearing uterus and ovaries. 2. No renal obstruction. 3. Moderate amount of free fluid may represent recently ruptured cyst but is indeterminate, internal echoes suggesting blood products. Dictated by: Bogdan Fajardo M.D. on 04/03/2017 at 12:55 Lab Results Interpretation Result Diagram: 04/03/17 1000 04/03/17 1000 Test 04/03/17 09:33 04/03/17 10:00 04/03/17 12:51 Urine Color Yellow (YELLOW) Urine Appearance Slightly cloudy Urine pH 5.5 (5.0-8.0) Urine Specific [place] 1.020 (1.003-1.035) Urine Protein Tracemg/dL (NEG,TRACE) Urine Glucose (UA) Negativemg/dL (NEGATIVE) Urine Ketones 15mg/dL (NEGATIVE) Urine Occult Blood Negative (NEGATIVE) Urine Nitrite Negative (NEGATIVE) Urine Bilirubin Negative (NEGATIVE) Urine Urobilinogen Normalmg/dL (NORMAL) Urine Leukocyte Esterase Negative (NEGATIVE) Urine RBC 0-2/hpf (0-2) Urine WBC 0-5/hpf (0-5) Urine Epithelial Cells Many/hpf (NONE-MOD) Urine Crystals None seen (NONE SEEN) Urine Bacteria Moderate/hpf (NONE-FEW) Urine Hyaline Casts None/lpf (NONE) Urine Granular Casts None seen (NONE SEEN) Urine Waxy Casts None seen (NONE SEEN) Urine Red Blood Cell Casts None seen (NONE SEEN) Urine White Blood Cell Casts None seen (NONE SEEN) Urine Mucus Present (None Seen) Urine Trichomonas None seen (NONE SEEN) Urine Yeast None (NONE SEEN) Urinalysis Comment None Urine Culture Reflexed Indicated White Blood Count 2.9th/mm3 (3.8-10.1) Red Blood Count 4.11mil/mm3 (3.90-5.20) Hemoglobin 12.3g/dL (12.0-15.6) Hematocrit 36.1% (35.0-46.0) Mean Corpuscular Volume 87.8fL (81-100) Mean Corpuscular Hemoglobin 29.9pg (27.0-35.0) Mean Corpuscular Hemoglobin Concent 34.1% (32.0-37.0) Red Cell Distribution Width 12.8% (12.3-15.4) Platelet Count 160bil/L (150-400) Neutrophils (%) (Auto) 87.3% (40-74) Lymphocytes (%) (Auto) 7.2% (14-46) Monocytes (%) (Auto) 5.5% (4-12) Eosinophils (%) (Auto) 0% (0-5) Basophils (%) (Auto) 0% (0-3) Sodium Level 135mEq/L (134-144) Potassium Level 3.6mEq/L (3.5-5.2) Chloride Level 99mEq/L (97-108) Carbon Dioxide Level 20mmol/L (18-29) Blood Urea Nitrogen 9mg/dL (6-20) Creatinine 0.60mg/dL (0.57-1.00) Estimat Glomerular Filtration Rate 174mL/min (>59) Glucose Level 106mg/dL (60-99) Lactic Acid Level 1.4mmol/L (0.4-2.0) Calcium Level 9.2mg/dL (8.5-10.1) Magnesium Level 1.6mg/dL (1.6-2.6) Total Bilirubin 0.2mg/dL (0.0-1.2) Aspartate Amino Transf (AST/SGOT) 14U/L (0-50) Alanine Aminotransferase (ALT/SGPT) 8U/L (0-32) Alkaline Phosphatase 74U/L (25-150) Total Protein 6.8g/dL (6.4-8.4) Albumin 3.7g/dL (3.4-5.0) Lipase 21U/L (13-60) Lab Results Interpretation: CBC nonspecific leukopenia, not neutropenia CMP normal Blood cultures 2 pending Urinalysis negative GC pending Re-Eval/Medical Decision Med Decision/Clinical Course This is a 27-year-old female's about a little over a month post and a tubal ligation, presents to complaint of fever. In recent weeks she has had several bouts of abdominal/pelvic pain, was seen in urgent care, and yesterday had abdominal pain was seen at [facility] which she had a CT scan and labs that did not reveal definitive etiology. She reports the abdominal pain is completely resolved, but last night she developed a fever. Again she rates no abdominal pain, no nausea, vomiting, dysuria, cough, rash. With a high fever she return to the emergency department. She does plan to see her surgeon at [facility] and has an appointment coming up. Here in the department she appears clinically well. Lungs are clear, heart tones normal. Abdomen soft, nontender. She has no CVA tenderness, no rashes. Wall presentations were sure, she does not appear toxic or ill, but she did indeed spike a fever even while the department. However she does point has no abdominal symptoms. Her abdomen is clinically benign. Her recent altered care hands ED visits [facility] were obtained and reviewed. Blood work was obtained and was nonspecific. A repeat pelvic ultrasound was obtained and there is some fluid thought to be possibly a trace amount of blood in the pelvis, but this is been noted on previous ultrasound and on CT scan is not worsening. There is no carmela features to suggest abscess, although be in the differential-the patient has no abdominal pain as repeated benign exams. This point definitive cause of the features not established, the patient feels much better received Tylenol and ibuprofen in the department. I do not think she requires hospitalization, she understands cultures are pending, should follow their surgeon. It was carefully explained O she develops new or worsening symptoms she needs to return for re-evaluation. Source of Hx: Old records Re-Evaluation/Progress : Time of Eval: 13:28 Re-Evaluation/Progress Note: Rechecked the patient. Discussed results, diagnosis, and plan for discharge. All questions were addressed. Differential Diagnosis: Negative: Abscess, Acute abdominal pain, Acute coronary syndrome, Ectopic , Esophageal rupture, Infectious mononucleosis, Intrauterine , Myocardial infarction, Pancreatitis, Stab wound abdomen Counseled Regarding: Diagnosis, Lab results, Need for follow-up, When/why to return to ED Discharge & Departure Primary Impression: Fever Fever type: unspecified Qualified Code: R50.9 - Fever, unspecified Disposition: Home Discharge Condition All VS Reviewed: Yes Condition: Stable Additional Instructions: 1. A clear or dangerous cause of the fever was not identified. 2. We did send "blood cultures" today to try and see if any bacteria grow - this takes ~2 days for results. We will call you if they are abnormal, or you may call us at [phone] any times for results. 3. I do recommend you keep your appointment next week with your surgeon at [facility] given the recent abdominal pain and now fever - but I do not appreciate signs of a complication or abscess on your evaluation today. 4. Continue tylenol 1000mg up to 3 times a day for fever and/or ibuprofen 800mg up to 3-4 times a day. 5. If you develop new or worsening symptoms. If you develop abdominal pain, difficulty breathing, etc... - return to the emergency department. Referrals: MIKI DORANTES MD (PCP) Scribe Attestation Portions of this note were transcribed by Sharri Willson. I, Dr. Cuellar personally performed the history, physical exam and medical decision-making; I reviewed and confirmed the accuracy of the information in the transcribed note. Signed by: Elías Esparza, 04/03/2017 at 1400. copies to: MIKI DORANTES MD, Matthew F MD Apr 03, 2017 09:49 Sharri Willson Apr 03, 2017 09:51
[2017-04-03 09:56] LABS: APPEARANCE,URINE SLIGHTLY CLOUDY (CLEAR,HAZY); COLOR,URINE YELLOW (YELLOW); OCCULT BLOOD,URINE NEGATIVE (NEGATIVE); PH,URINE 5.5 (5.0-8.0); UROBILINOGEN,URINE NORMAL (NORMAL)
[2017-04-03 10:46] LABS: BASOPHILS % (AUTO) 0 % (0-3); EOSINOPHILS % (AUTO) 0 % (0-5); MONOCYTES % (AUTO) 5.5 % (4-12); Mean Corpuscular Hemoglobin 29.9 pg (27.0-35.0); Mean Corpuscular Volume 87.8 fL (81-100); NEUTROPHILS % (AUTO) 87.3 % (40-74); Platelet Count 160 bil/L (150-400)
[2017-04-03 11:09] LABS: Magnesium 1.6 mg/dL (1.6-2.6)
[2017-04-03 11:23] VITALS: BP 113/69; PULSE 95; RESP 16; O2SAT 99
[2017-04-03 12:47] VITALS: BP 110/62; PULSE 84; RESP 16; O2SAT 95
--- NOTE | 2017-04-03 13:04 | DRSVH ---
PROCEDURE: US PELVIC SONOGRAM + TRANSVAGINAL SONOGRAM INDICATIONS: fever post TECHNIQUE: Real-time scanning was performed of the pelvic organs, with image documentation. Additional endovagi nal scanning was necessary due to incomplete visualization of the adnexal and endometrial structures by transabdominal scanning. COMPARISON: 03/29/2017. FINDINGS: (orthogonal measurements) Uterus size: 9.73 cm, 4.56 cm, 7.35 cm Endometrium thickness: 3.80 mm Right ovary size: 3.12 cm, 3.60 cm, 2.69 cm Left ovary size: 2.24 cm, 3.01 cm, 1.48 cm Transabdominal scanning: Limited scanning through the kidneys shows no hydronephrosis. There is a mo derate amount of free fluid in the cul-de-sac, fluid containing diffuse low level internal echoes Endovaginal scanning: Uterus: Uterus is normal in size and appearance. Endometrium is within normal physiologic limits. Ovaries: Within normal physiologic limits. The right kidney contains a prominent follicular cyst wit h measurement of 15 x 18 x 19 mm. Both ovaries show normal blood flow. Prominent pelvic vascularity a gain noted. IMPRESSION: 1. Normal appearing uterus and ovaries. 2. No renal obstruction. 3. Moderate amount of free fluid may represent recently ruptured cyst but is indeterminate, internal echoes suggesting blood products. Dictated by: Bogdan Fajardo M.D. on 04/03/2017 at 12:55 Approved by: Bogdan Fajardo M.D. on 04/03/2017 at 13:02
[2017-04-03 13:55] VITALS: BP 96/59; PULSE 79; RESP 14; O2SAT 96
== END 2017-04-03 13:56 | disposition home or self-care (01) ==
LOC: SED 09:05
DX: R50.9 Fever, unspecified (principal); R11.2 Nausea with vomiting, unspecified; F17.200 Nicotine dependence, unspecified, uncomplicated; Z88.8 Allergy status to other drugs, medicaments and biological substances; Z87.440 Personal history of urinary (tract) infections; Z86.59 Personal history of other mental and behavioral disorders; Z86.19 Personal history of other infectious and parasitic diseases; Z86.2 Personal history of diseases of the blood and blood-forming organs and certain disorders involving the immune mechanism
CPT/HCPCS: 36415; 76830; 76856; 80053; 81000; 81025; 83605; 83690; 83735; 85025; 87040; 87086; 87491; 87591; 96360; 99285; J7030